=== PATIENT | female | born 1950 | race Caucasian/White ===

== ENCOUNTER 2019-01-15 20:47 | Observation (INO) | payer OTHER, BC ==
--- NOTE | 2019-01-15 21:03 | PDOC ---
History of Present Illness - General Chief Complaint: Syncope/Near Syncope Stated Complaint: SYNCOPE Time Seen by Provider: 01/15/19 21:02 History Source: Patient, Family Exam Limitations: No Limitations - History of Present Illness Initial Comments: 01/15/19 21:03 Source: Pt and at bedside HPI: 68yo woman with PMH migraines, Gaucher's Disease, secondary pulmonary hypertension, s/p R hip replacement, presenting with witnessed syncope. Pt was outside walking home with after a cocktail and felt nauseous and sat down on a low wall, when she attempted to stand up she because intensely nauseous and collapsed, incontinent of urine. Her reports that she slumped into his arms and he lowered her to the ground, denies any abnormal motions, regained consciousness after about 10 seconds. Bystanders called EMS who found the pt with a SBP in the 80s, gave 1L fluid bolus and found SBP in 120s on repeat. Denies chest pain, palpitations, SOB, CAST, dizziness, fevers, chills, urinary symptoms, or prior episodes. Reports that she feels amazing after her IVF, had felt well up until the syncope. Pt reports good PO intake and good water intake (4 glasses), reports increase in exercise (10K steps per day) as she is prepparing for a wedding in a couple months. 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, bruit over R chest / neck All: NKDA Meds: -VPRIV infusions every 2 weeks -Vitamin D -Allergy Meds PRN -MVI -Fioricet for migraines PRN PMH: as above PSH: as above Past History - Past Medical History Allergies/Adverse Reactions: Allergies Allergy/AdvReac Type Severity Reaction Status Date / Time No Known Allergies Allergy Verified 01/15/19 22:42 Review of Systems - Review of Systems Able to Perform ROS?: Yes Is the patient limited Amharic proficient: No Constitutional: No: Chills, Fever, Loss of Appetite, Night Sweats, Weakness HEENTM: No: Symptoms Reported Respiratory: No: Cough, Shortness of Breath, Wheezing, Productive cough Cardiac (ROS): Yes: See HPI, Syncope. No: Chest Pain, Irregular Heart Rate, Lightheadedness, Palpitations, Chest Tightness ABD/GI: Yes: See HPI, Nausea. No: Constipated, Diarrhea, Vomiting : No: Symptoms Reported, Burning, Dysuria, Discharge, Frequency, Incontinence , Pain, Urgency Musculoskeletal: No: Symptoms Reported, Back Pain, Neck Pain Integumentary: No: Symptoms Reported Neurological: No: Symptoms reported, Headache, Numbness, Paresthesia, Weakness All Other Systems: Reviewed and Negative *Physical Exam - Physical Exam Comments: 01/15/19 21:48 Vital signs reviewed, afebrile, HDS with mild hypertension GEN: WDWN woman laying in a stretcher, comfortable, cooperative, pleasant HEENT: NCAT, MMM, EOMI, normal morphologies CV: RRR, NL s1/s2, bruit extending from aortic region to the R carotid, no murmurs appreciated Pulm: Normal WOB, CTABL, no wheezes / rales / rhonchi Abd: soft, nontender, nondistended Skin: WWP, dry Ext: cap refill wnl, no clubbing / cyanosis / edema Pulses: 2+ radial and PT bilaterally Neuro: alert and oriented, CN grossly intact, MAEE, good strength throughout ED Treatment Course - LABORATORY CBC & Chemistry Diagram: 01/15/19 22:00 01/15/19 22:00 Medical Decision Making - Medical Decision Making 01/15/19 21:51 68yo woman with PMH migraines, Gaucher's Disease, secondary pulmonary hypertension, s/p R hip replacement, presenting with witnessed syncope with nausea prodrome in the setting of calorie restriction, increased exercise, alcohol consumption. Exam largely unremarkable, patient hemodynamically stable in the ED. Most likely vasovagal syncope, will assess for neurologic and cardiac causes. Of note, patient with close followup with multiple providers in the [facility]. -CBC, CMP, Cardiac Profile -NCHCT -EKG, CXR - IVF 01/15/19 23:19 -Pt taken to CT, CXR reads pending -Call placed to radiologist for information regarding well circumscribed R hilar mass seen on my read -Mild leukocytosis (10.4), Mild hypernatremia 147, Ca 6.9 (7.9 when corrected for albumin 2.8) -Troponin negative -EKG: NSR, rate 73, normal axis, prolonged QTc (478), deep T-wave inversions, possible left atrial enlargement, LV hypertrophy 01/16/19 00:03 -Plan for repeat troponin at 1:00 AM -Spoke with pt Neurologist Dr. Galeana, reported no recent EKG or CXR on hand, pt has not seen cardiology or pulmonology yet -Pt reports that she doesn't know when her most recent EKG or CXR would have been -Plan for CTA Chest, PE protocol to r/o PE and assess R lung mass Dispo: plan for admission, true syncope with LOC, deep T wave inversions on EKG 01/16/19 00:[address] Lee on the night team *DC/Admit/Observation/Transfer Diagnosis at time of Disposition: Syncope and collapse - Discharge Dispostion Disposition: HOME Condition at time of disposition: Improved Decision to Admit order: No - Referrals Referrals: ON STAFF,NOT [Primary Care Provider] - - Patient Instructions Printed Discharge Instructions: DI for Syncope in Adults (Fainting) - Post Discharge Activity
[2019-01-15] MEDS ORDERED: SODIUM CHLORIDE 1,000 ML IV STA (21:35)
[2019-01-15 21:53] VITALS: BMI 22.1
[2019-01-15 22:28] LABS: BASO % 0.4 % (0-2.0); EOS % 0.5 % (0-4.5); HEMATOCRIT 38.8 % (32.4-45.2); HEMOGLOBIN 13.3 GM/dL (10.7-15.3); LYMPH % 11.7 % (8-40); MCH 35.5 pg (25.7-33.7); MCHC 34.1 g/dl (32.0-36.0); MEAN CELL VOLUME 103.9 fl (80-96); MEAN PLT VOLUME 9.1 fl (7.5-11.1); MONO % 7.1 % (3.8-10.2); NEUT % 80.3 % (42.8-82.8); PLATELET COUNT 179 K/MM3 (134-434); RBC 3.74 M/mm3 (3.60-5.2); RDW 13.6 % (11.6-15.6); WHITE BLOOD COUNT 10.4 K/mm3 (4.0-10.0)
--- NOTE | 2019-01-15 22:40 | PDOC ---
Documentation entered by Tori Couch SCRIBE, acting as scribe for Denia Cornelius MD. Denia Cornelius MD: This documentation has been prepared by the Iza cruz Mackenzie, SCRIBE, under my direction and personally reviewed by me in its entirety. I confirm that the documentation accurately reflects all work , treatment, procedures, and medical decision making performed by me. 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 Patient states she had dinner and a few cocktails with her and on their walk home she suddenly felt nauseous and unsteady. She reports she sat down for a minute and when she stood up immediately syncopize and her called EMS. Patient notes she has been dieting recently The patient denies chest pain. Denies fever, chills,vomiting, diarrhea and constipation. Denies dysuria, frequency, urgency and hematuria. Allergies: NKA Past surgical history: as per resident note 01/15/19 21:42 - Physicial Exam PE: GENERAL: The patient is in no acute distress. ENT: Ears normal, nares patent, oropharynx clear without exudates. Moist mucous membranes. NECK: Normal range of motion, supple, no nuchal rigidity LUNGS: Breath sounds equal, clear to auscultation bilaterally. No wheezes, and no crackles. HEART: Regular rate and rhythm, normal S1 and S2 without murmur, rub or gallop. ABDOMEN: Soft, nontender, normoactive bowel sounds. No guarding, no rebound. No masses palpable. EXTREMITIES: Normal range of motion, no edema. NEUROLOGICAL: Cranial nerves II through XII grossly intact. Normal speech. No focal neurological deficits. SKIN: Warm, Dry, normal turgor, no rashes or lesions noted. 01/15/19 21:42 - Medical Decision Making 01/15/19 22:35 68 yo F presenting with a complaint of sycopal episode h/o migraines, Gaucher's Disease c/b pulmonary hypertension presenting with witnessed syncopal episode. Pt has been trying to walk more (today she did 11k steps). While walking outside with her after a cocktail, she felt an overwhelming sensaiton of nausea and in response sat down. She doesn't remember anything after this. 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, bruit over R chest / neck DD: Vasovagal syncope, dehydration, arrhythmia, ACS, complication of Gaucher's diesease Will do: Labs, EKG, CT head, contact PMD, re assess 01/15/19 23:51 Laboratory Tests 01/15/19 01/15/19 22:00 22:00 Sodium 147 H Potassium 3.2 L Chloride 119 H Carbon Dioxide 21 Creatinine 0.4 L Random Glucose 78 Calcium 6.9 L* Creatine Kinase 32 Troponin I < 0.02 Total Protein 5.3 L Albumin 2.8 L CORRECTED CALCIUM IS 7.9 01/15/19 23:52 Laboratory Tests 01/15/19 22:00 WBC 10.4 H Hgb 13.3 Hct 38.8 Plt Count 179 Call placed to PMD 01/15/19 23:53 EKG - NSR rate of 73bpm, axis nml, intervale nml, no st elevation or depression , deep t wave inversions v2-v5 CXR - right lung mass/lesion noted? With no prior for comparison, would 1) Do CT of chest 2) Admit for observation *DC/Admit/Observation/Transfer Diagnosis at time of Disposition: Syncope and collapse - Discharge Dispostion Condition at time of disposition: Fair Decision to Admit order: Yes - Referrals Referrals: ON STAFF,NOT [Primary Care Provider] - - Patient Instructions Printed Discharge Instructions: DI for Syncope in Adults (Fainting) - Post Discharge Activity
[2019-01-15 23:10] LABS: ALBUMIN 2.8 g/dl (3.4-5.0); BILIRUBIN,TOTAL 0.2 mg/dL (0.2-1); BLOOD UREA NITROGEN 12.3 mg/dL (7-18); CREATININE 0.4 mg/dL (0.55-1.3); POTASSIUM 3.2 mmol/L (3.5-5.1); TOT PROT 5.3 g/dl (6.4-8.2)
[2019-01-15 23:19] LABS: CALCIUM 6.9 mg/dL (8.5-10.1)
[2019-01-16] MEDS ORDERED: POTASSIUM CHLORIDE TABS 20 MEQ TABLET.ER (FP) PO ONE ×2 (00:17→00:34)
[2019-01-16 02:51] LABS: BLOOD UREA NITROGEN 12.2 mg/dL (7-18); CALCIUM 8.5 mg/dL (8.5-10.1); CREATININE 0.5 mg/dL (0.55-1.3); POTASSIUM 4.5 mmol/L (3.5-5.1)
[2019-01-16 03:55] LABS: ALBUMIN 3.6 g/dl (3.4-5.0); BILIRUBIN,TOTAL 0.4 mg/dL (0.2-1); MAGNESIUM 1.6 mg/dL (1.8-2.4); TOT PROT 6.6 g/dl (6.4-8.2)
--- NOTE | 2019-01-16 03:58 | PDOC ---
*Physical Exam - Vital Signs Last Vital Signs Temp Pulse Resp BP Pulse Ox 97.4 F L 72 16 142/59 L 96 01/15/19 21:10 01/15/19 21:10 01/15/19 21:10 01/15/19 21:10 01/15/19 21:10 ED Treatment Course - LABORATORY CBC & Chemistry Diagram: 01/15/19 22:00 01/16/19 02:15 - ADDITIONAL ORDERS Additional order review: Laboratory Results 01/16/19 01/16/19 01/15/19 00:40 00:40 22:00 Sodium Cancelled 147 H Potassium Cancelled 3.2 L Chloride Cancelled 119 H Carbon Dioxide Cancelled 21 Anion Gap Cancelled 7 L BUN Cancelled 12.3 Creatinine Cancelled 0.4 L Est GFR (CKD-EPI)AfAm Cancelled 125.79 Est GFR (CKD-EPI)NonAf Cancelled 108.54 Random Glucose Cancelled 78 Calcium Cancelled 6.9 L* Total Bilirubin 0.2 AST 25 ALT 35 Alkaline Phosphatase 67 Creatine Kinase Cancelled Troponin I Cancelled Total Protein 5.3 L Albumin 2.8 L 01/15/19 22:00 Sodium Potassium Chloride Carbon Dioxide Anion Gap BUN Creatinine Est GFR (CKD-EPI)AfAm Est GFR (CKD-EPI)NonAf Random Glucose Calcium Total Bilirubin AST ALT Alkaline Phosphatase Creatine Kinase 32 Troponin I < 0.02 Total Protein Albumin 01/15/19 22:00 RBC 3.74 MCV 103.9 H MCHC 34.1 RDW 13.6 MPV 9.1 Neutrophils % 80.3 Lymphocytes % 11.7 Monocytes % 7.1 Eosinophils % 0.5 Basophils % 0.4 - Medications Given in the ED: ED Medications Discontinued Medications Generic Name Dose Route Start Last Admin Trade Name Freq PRN Reason Stop Dose Admin Sodium Chloride 1,000 mls @ 1,000 mls/hr 01/15/19 21:35 01/15/19 22:15 Normal Saline - IV 01/15/19 22:34 1,000 mls/hr ASDIR STA Administration Potassium Chloride 40 meq 01/16/19 00:17 01/16/19 00:49 K-Dur - PO 01/16/19 00:18 40 meq ONCE ONE Administration Medical Decision Making - Medical Decision Making 01/16/19 03:57 Patient Name: RONEN NICHOLAS THIS IS A PRELIMINARY REPORT FROM [facility]AGING [facility]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 COMPARISON: None. TECHNIQUE: Following 94 mL Omnipaque 350 IV contrast administration thin axial images were obtained through the chest for pulmonary artery evaluation by pulmonary embolism protocol with 3-D post-processing included coronal and sagittal reformatted 3-D MIP images which were permanently stored in the patient medical record PACS. FINDINGS: No large central pulmonary embolism. Evaluation of the distal segmental branches are limited by artifact. Enlarged pulmonary arteries consistent with pulmonary artery hypertension. Right thyroid calcified nodule. No aortic aneurysm or dissection. Mild arteriosclerosis of the aorta and aortic branches. Right upper lobe spiculated nonspecific 1.1 x 1.1 cm mass axial image 33 and coronal image 54 may be benign or malignant. No pleural effusion. No pneumothorax. Calcified gallbladder wall incompletely included within the [id number] most likely associated with gallbladder dysmotility and chronic cholecystitis and other disease in the gallbladder wall including gallbladder wall malignancy cannot be excluded. Spleen is not identified. Chronic calcifications in the tail of the pancreas. Diverticulosis of the descending colon. Mild to moderate degenerative disc disease. T6 vertebral body hemangioma. Heterogeneous nonspecific breast parenchymal density in the left and right breast retroareolar soft tissues. IMPRESSION: No large central pulmonary embolism. Enlarged pulmonary arteries consistent with pulmonary artery hypertension. Right thyroid calcified nodule. Right upper lobe spiculated nonspecific 1.1 x 1.1 cm mass may be benign or malignant. If clinically indicated follow-up outpatient CT chest may be needed. Calcified gallbladder wall incompletely included within the [id number] most likely associated with gallbladder dysmotility and chronic cholecystitis and other disease in the gallbladder wall including gallbladder wall malignancy cannot be excluded. If clinically indicated follow- up outpatient gallbladder ultrasound evaluation may be needed. Spleen is not identified. Chronic calcifications in the tail of the pancreas. Diverticulosis of the descending colon. T6 vertebral body hemangioma. Heterogeneous nonspecific breast parenchymal density in the left and right breast retroareolar soft tissues. If clinically indicated follow-up outpatient bilateral breast mammograms may be needed. This CT exam was performed using one or more of the following dose reduction techniques: automated exposure control, adjustment of the mA and/or kV according to patient size, use of iterative reconstruction technique. *DC/Admit/Observation/Transfer Diagnosis at time of Disposition: Syncope and collapse - Discharge Dispostion Condition at time of disposition: Fair - Referrals - Patient Instructions - Post Discharge Activity
--- NOTE | 2019-01-16 04:06 | PDOC ---
*Physical Exam - Vital Signs Last Vital Signs Temp Pulse Resp BP Pulse Ox 97.4 F L 72 16 142/59 L 96 01/15/19 21:10 01/15/19 21:10 01/15/19 21:10 01/15/19 21:10 01/15/19 21:10 ED Treatment Course - LABORATORY CBC & Chemistry Diagram: 01/15/19 22:00 01/16/19 02:15 - ADDITIONAL ORDERS Additional order review: Laboratory Results 01/16/19 01/16/19 01/16/19 02:15 02:15 00:40 Sodium 146 H Potassium 4.5 Chloride 114 H Carbon Dioxide 24 Anion Gap 8 BUN 12.2 Creatinine 0.5 L Est GFR (CKD-EPI)AfAm 116.89 Est GFR (CKD-EPI)NonAf 100.85 Random Glucose 88 Calcium 8.5 Magnesium 1.6 L Total Bilirubin 0.4 AST 35 ALT 41 Alkaline Phosphatase 83 Creatine Kinase 41 Cancelled Troponin I < 0.02 Cancelled Total Protein 6.6 Albumin 3.6 01/16/19 01/15/19 01/15/19 00:40 22:00 22:00 Sodium Cancelled 147 H Potassium Cancelled 3.2 L Chloride Cancelled 119 H Carbon Dioxide Cancelled 21 Anion Gap Cancelled 7 L BUN Cancelled 12.3 Creatinine Cancelled 0.4 L Est GFR (CKD-EPI)AfAm Cancelled 125.79 Est GFR (CKD-EPI)NonAf Cancelled 108.54 Random Glucose Cancelled 78 Calcium Cancelled 6.9 L* Magnesium Total Bilirubin 0.2 AST 25 ALT 35 Alkaline Phosphatase 67 Creatine Kinase 32 Troponin I < 0.02 Total Protein 5.3 L Albumin 2.8 L 01/15/19 22:00 RBC 3.74 MCV 103.9 H MCHC 34.1 RDW 13.6 MPV 9.1 Neutrophils % 80.3 Lymphocytes % 11.7 Monocytes % 7.1 Eosinophils % 0.5 Basophils % 0.4 - Medications Given in the ED: ED Medications Discontinued Medications Generic Name Dose Route Start Last Admin Trade Name Freq PRN Reason Stop Dose Admin Sodium Chloride 1,000 mls @ 1,000 mls/hr 01/15/19 21:35 01/15/19 22:15 Normal Saline - IV 01/15/19 22:34 1,000 mls/hr ASDIR STA Administration Potassium Chloride 40 meq 01/16/19 00:17 01/16/19 00:49 K-Dur - PO 01/16/19 00:18 40 meq ONCE ONE Administration *DC/Admit/Observation/Transfer Diagnosis at time of Disposition: Syncope and collapse - Discharge Dispostion Condition at time of disposition: Fair - Referrals Referrals: ON STAFF,NOT [Primary Care Provider] - - Patient Instructions - Post Discharge Activity
[2019-01-16] MEDS ORDERED: MAGNESIUM OXIDE 400 MG TABLET (FP) PO ONE (04:42)
[2019-01-16 05:00] LABS: URINE APPEARANCE CLEAR; URINE BILIRUBIN NEGATIVE (NEGATIVE); URINE COLOR YELLOW; URINE GLUCOSE (UA) NEGATIVE (NEGATIVE); URINE KETONE NEGATIVE (NEGATIVE); URINE LEUK ESTERASE NEGATIVE (NEGATIVE); URINE NITRITE NEGATIVE (NEGATIVE); URINE PROTEIN NEGATIVE (NEGATIVE); URINE UROBILINOGEN 0.2 mg/dL (0.2-1.0)
--- NOTE | 2019-01-16 05:32 | PN ---
Teaching Attending Note Name of Resident: Katia Zayas ATTENDING PHYSICIAN STATEMENT I saw and evaluated the patient. I reviewed the resident's note and discussed the case with the resident. I agree with the resident's findings and plan as documented. Seen and examined; please refer to resident note for further historical information. Briefly, this is a 68 y/o female presenting with VS, labs, imaging reviewed NAD, AAO, resting comfortably in bed NC AT EOMI PERRLA Lungs CTAB, w/ sym exp RRR s1/2 NT ND +BS CN2-12 wnl, no fnd Normal mood, appropriate behavior EKG reviewed Preliminary imaging report shows ASSESSMENT AND PLAN: Patient presents to the hospital for
[2019-01-16] MEDS ORDERED: MAGNESIUM OXIDE 400 MG TABLET (FP) ONE (05:40)
--- NOTE | 2019-01-16 06:06 | HP ---
CHIEF COMPLAINT: Syncope PCP: none HISTORY OF PRESENT ILLNESS: 68 y.o. F PMH Gauchers disease, pulmonary HTN, kidney stones in the past, hyperparathyroidism presented after a syncopal episode. Pt does not remember much of the episode, syncopal episode explained by her Osmin. Pt was walking, took 3-4 steps and then "just passed out". Her states she fell , did not hit her head because he caught her, and lost consciousness for about 5 seconds. Pt became incontinent during this episode. Pt had post-ictal drowsiness. Pt did experience nausea upon wakening but no emesis. She has never had LOC/ syncopal episode in the past. Denies CP/ SOB/ emesis/ diarrhea/ parasthesias/ myalgias. ER course was notable for: (1)Head CT neg (2)Chest CTA: Right upper lobe spiculated nonspecific 1.1 x 1.1 cm mass may be benign or malignant. Calcified GB, gallbladder wall malignancy cannot be excluded Recent Travel: Denies PAST MEDICAL HISTORY: Gauchers disease, pulmonary HTN, migraines, kidney stones PAST SURGICAL HISTORY: Parathyroidectomy x1 gland abotu 15 yrs ago, R hip replacement, splenectomy Social History: Smoking: Denies Alcohol: Social, 1-2 drinks per week Drugs: Denies Family History: DM father, lymphoma mother Allergies No Known Allergies Allergy (Verified 01/15/19 22:42) HOME MEDICATIONS: Home Medications Medication Instructions Recorded NK [No Known Home Medication] 01/16/19 REVIEW OF SYSTEMS CONSTITUTIONAL: Absent: fever, chills, diaphoresis, generalized weakness, malaise, loss of appetite, weight change HEENT: Absent: rhinorrhea, nasal congestion, throat pain, throat swelling, difficulty swallowing, mouth swelling, ear pain, eye pain, visual changes CARDIOVASCULAR: Absent: chest pain, syncope, palpitations, irregular heart rate, lightheadedness , peripheral edema RESPIRATORY: Absent: cough, shortness of breath, dyspnea with exertion, orthopnea, wheezing, stridor, hemoptysis GASTROINTESTINAL: Absent: abdominal pain, abdominal distension, nausea, vomiting, diarrhea, constipation, melena, hematochezia GENITOURINARY: Absent: dysuria, frequency, urgency, hesitancy, hematuria, flank pain, genital pain MUSCULOSKELETAL: Absent: myalgia, arthralgia, joint swelling, back pain, neck pain SKIN: Absent: rash, itching, pallor HEMATOLOGIC/IMMUNOLOGIC: Absent: easy bleeding, easy bruising, lymphadenopathy, frequent infections ENDOCRINE: Absent: unexplained weight gain, unexplained weight loss, heat intolerance, cold intolerance NEUROLOGIC: Absent: headache, focal weakness or paresthesias, dizziness, unsteady gait, seizure, mental status changes, bladder or bowel incontinence PSYCHIATRIC: Absent: anxiety, depression, suicidal or homicidal ideation, hallucinations. PHYSICAL EXAMINATION Vital Signs - 24 hr 01/15/19 21:10 Temperature 97.4 F L Pulse Rate 72 Respiratory 16 Rate Blood Pressure 142/59 L O2 Sat by Pulse 96 Oximetry (%) GENERAL: Awake, alert, and fully oriented, in no acute distress. HEAD: Normal with no signs of trauma. EYES: Pupils equal, round and reactive to light, extraocular movements intact, sclera anicteric, conjunctiva clear. No lid lag. EARS, NOSE, THROAT: Ears normal, nares patent, oropharynx clear without exudates. Moist mucous membranes. NECK: Normal range of motion, supple without lymphadenopathy, JVD, or masses. LUNGS: Breath sounds equal, clear to auscultation bilaterally. No wheezes, and no crackles. No accessory muscle use. HEART: Regular rate and rhythm, normal S1 and S2 without murmur, rub or gallop. ABDOMEN: Soft, nontender, not distended, normoactive bowel sounds, no guarding, no rebound, no masses. MUSCULOSKELETAL: Normal range of motion UPPER EXTREMITIES: 2+ pulses, warm, well-perfused. No cyanosis. No clubbing. No peripheral edema. LOWER EXTREMITIES: 2+ pulses, warm, well-perfused. No calf tenderness. No peripheral edema. NEUROLOGICAL: Cranial nerves II-XII intact. Normal speech. Normal gait. Orthostatics negative. Gleason hallpike negative. SKIN: Warm, dry, normal turgor, no rashes or lesions noted Laboratory Results - last 24 hr Laboratory Last Values WBC 10.4 K/mm3 (4.0-10.0) H 01/15/19 22:00 RBC 3.74 M/mm3 (3.60-5.2) 01/15/19 22:00 Hgb 13.3 GM/dL (10.7-15.3) 01/15/19 22:00 Hct 38.8 % (32.4-45.2) 01/15/19 22:00 MCV 103.9 fl (80-96) H 01/15/19 22:00 MCH 35.5 pg (25.7-33.7) H 01/15/19 22:00 MCHC 34.1 g/dl (32.0-36.0) 01/15/19 22:00 RDW 13.6 % (11.6-15.6) 01/15/19 22:00 Plt Count 179 K/MM3 (134-434) 01/15/19 22:00 MPV 9.1 fl (7.5-11.1) 01/15/19 22:00 Absolute Neuts (auto) 8.4 K/mm3 (1.5-8.0) H 01/15/19 22:00 Neutrophils % 80.3 % (42.8-82.8) 01/15/19 22:00 Lymphocytes % 11.7 % (8-40) 01/15/19 22:00 Monocytes % 7.1 % (3.8-10.2) 01/15/19 22:00 Eosinophils % 0.5 % (0-4.5) 01/15/19 22:00 Basophils % 0.4 % (0-2.0) 01/15/19 22:00 Nucleated RBC % 0 % (0-0) 01/15/19 22:00 Sodium 146 mmol/L (136-145) H 01/16/19 02:15 Potassium 4.5 mmol/L (3.5-5.1) 01/16/19 02:15 Chloride 114 mmol/L (98-107) H 01/16/19 02:15 Carbon Dioxide 24 mmol/L (21-32) 01/16/19 02:15 Anion Gap 8 MMOL/L (8-16) 01/16/19 02:15 BUN 12.2 mg/dL (7-18) 01/16/19 02:15 Creatinine 0.5 mg/dL (0.55-1.3) L 01/16/19 02:15 Est GFR (CKD-EPI)AfAm 116.89 01/16/19 02:15 Est GFR (CKD-EPI)NonAf 100.85 01/16/19 02:15 Random Glucose 88 mg/dL (74-106) 01/16/19 02:15 Calcium 8.5 mg/dL (8.5-10.1) 01/16/19 02:15 Magnesium 1.6 mg/dL (1.8-2.4) L 01/16/19 02:15 Total Bilirubin 0.4 mg/dL (0.2-1) 01/16/19 02:15 AST 35 U/L (15-37) 01/16/19 02:15 ALT 41 U/L (13-61) 01/16/19 02:15 Alkaline Phosphatase 83 U/L (45-117) 01/16/19 02:15 Creatine Kinase 41 U/L (26-192) 01/16/19 02:15 Troponin I < 0.02 ng/ml (0.00-0.05) 01/16/19 02:15 Total Protein 6.6 g/dl (6.4-8.2) 01/16/19 02:15 Albumin 3.6 g/dl (3.4-5.0) 01/16/19 02:15 Urine Color Yellow 01/16/19 04:43 Urine Appearance Clear 01/16/19 04:43 Urine pH 7.0 (5.0-8.0) 01/16/19 04:43 Ur Specific Cobb 1.028 (1.010-1.035) 01/16/19 04:43 Urine Protein Negative (NEGATIVE) 01/16/19 04:43 Urine Glucose (UA) Negative (NEGATIVE) 01/16/19 04:43 Urine Ketones Negative (NEGATIVE) 01/16/19 04:43 Urine Blood Negative (NEGATIVE) 01/16/19 04:43 Urine Nitrite Negative (NEGATIVE) 01/16/19 04:43 Urine Bilirubin Negative (NEGATIVE) 01/16/19 04:43 Urine Urobilinogen 0.2 mg/dL (0.2-1.0) 01/16/19 04:43 Ur Leukocyte Esterase Negative (NEGATIVE) 01/16/19 04:43 ASSESSMENT/PLAN: 68 F PMH Gauchers disease, pulmonary HTN, kidney stones presenting after syncopal episode. #Syncope -F/u EKG, echo -Admit to tele -MRI brain w/o contrast -CT abd/ pel -Neuro checks -Seizure precautions #HTN -C/w home meds #Migraine Headaches -Fioricet (home med) #FEN -S/p 1 bolus IVF -Trend lytes -Chol/ fat Na restr diet #DVT PPX -LVX 40 SQ Visit type - Emergency Visit Emergency Visit: Yes ED Registration Date: 01/16/19 Care time: The patient presented to the Emergency Department on the above date and was hospitalized for further evaluation of their emergent condition. - New Patient This patient is new to me today: Yes Date on this admission: 01/16/19 - Critical Care Critical Care patient: No ATTENDING PHYSICIAN STATEMENT I saw and evaluated the patient. I reviewed the resident's note and discussed the case with the resident. I agree with the resident's findings and plan as documented. SUBJECTIVE: OBJECTIVE: ASSESSMENT AND PLAN:
[2019-01-16 09:27] LABS: BASO % 0.4 % (0-2.0); EOS % 0.4 % (0-4.5); HEMATOCRIT 40.4 % (32.4-45.2); LYMPH % 26.4 % (8-40); MCH 35.7 pg (25.7-33.7); MCHC 34.7 g/dl (32.0-36.0); MEAN CELL VOLUME 102.9 fl (80-96); MEAN PLT VOLUME 9.4 fl (7.5-11.1); MONO % 7.6 % (3.8-10.2); NEUT % 65.2 % (42.8-82.8); PLATELET COUNT 182 K/MM3 (134-434); RBC 3.93 M/mm3 (3.60-5.2); RDW 13.4 % (11.6-15.6); WHITE BLOOD COUNT 7.6 K/mm3 (4.0-10.0)
[2019-01-16 09:43] LABS: ALBUMIN 3.9 g/dl (3.4-5.0); BILIRUBIN,TOTAL 0.6 mg/dL (0.2-1); BLOOD UREA NITROGEN 9.2 mg/dL (7-18); CALCIUM 9.2 mg/dL (8.5-10.1); CREATININE 0.5 mg/dL (0.55-1.3); MAGNESIUM 2.3 mg/dL (1.8-2.4); PHOSPHOROUS 2.6 mg/dL (2.5-4.9); POTASSIUM 4.4 mmol/L (3.5-5.1); TOT PROT 7.3 g/dl (6.4-8.2)
[2019-01-16] MEDS ORDERED: ENOXAPARIN NA (PORCINE) 40 MG/0.4 ML DISP.SYRIN SQ SCH (10:00)
[2019-01-16 10:45] VITALS: TEMP 97.9
[2019-01-16] MEDS ORDERED: ENOXAPARIN NA (PORCINE) 40 MG/0.4 ML DISP.SYRIN SQ ONE (11:08)
--- NOTE | 2019-01-16 11:46 | DS ---
Physical Exam: SUBJECTIVE: Patient seen and examined. pt is asymptomatic. states she felt immediate improvement when EMS started IVF on her. states she has not been drinking lately and was out in the sun yesterday. is very well versed in her medical conditions. has a known porclein gallbladder which she has been following with routine screening. 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 has known pulmonary HTN. has not had her routine screening testing. mother had breast cancer at "very elderly age" denies CP, SOB, fever, chills, N/V/C/D OBJECTIVE: Vital Signs Period Temp Pulse Resp BP Sys/Flaherty Pulse Ox Last 24 Hr 97.4 F-97.9 F 72-74 16-16 140-142/59-77 96-96 PHYSICAL EXAM GENERAL: The patient is awake, alert, and fully oriented, in no acute distress. HEAD: Normal with no signs of trauma. EYES: PERRL, extraocular movements intact, sclera anicteric, conjunctiva clear. ENT: Ears normal, nares patent, oropharynx clear without exudates, moist mucous membranes. NECK: Trachea midline, full range of motion, supple. LUNGS: Breath sounds equal, clear to auscultation bilaterally, no wheezes, no crackles, no accessory muscle use. HEART: Regular rate and rhythm, S1, S2 +holosystolic murmur radiating from the R carotid rub or gallop. ABDOMEN: Soft, nontender, nondistended, normoactive bowel sounds, no guarding, no rebound, no hepatosplenomegaly, no masses. EXTREMITIES: 2+ pulses, warm, well-perfused, no edema. NEUROLOGICAL: Cranial nerves II through XII grossly intact. Normal speech, neg dysmetria, neg heel to rutherford. strength and sensation equal in all 4 extremities. gait not observed. PSYCH: Normal mood, normal affect. SKIN: Warm, dry, normal turgor, no rashes or lesions noted. LABS Laboratory Results - last 24 hr 01/15/19 01/15/19 01/15/19 22:00 22:00 22:00 WBC 10.4 H RBC 3.74 Hgb 13.3 Hct 38.8 MCV 103.9 H MCH 35.5 H MCHC 34.1 RDW 13.6 Plt Count 179 MPV 9.1 Absolute Neuts (auto) 8.4 H Neutrophils % 80.3 Lymphocytes % 11.7 Monocytes % 7.1 Eosinophils % 0.5 Basophils % 0.4 Nucleated RBC % 0 Sodium 147 H Potassium 3.2 L Chloride 119 H Carbon Dioxide 21 Anion Gap 7 L BUN 12.3 Creatinine 0.4 L Est GFR (CKD-EPI)AfAm 125.79 Est GFR (CKD-EPI)NonAf 108.54 Random Glucose 78 Calcium 6.9 L* Phosphorus Magnesium Total Bilirubin 0.2 AST 25 ALT 35 Alkaline Phosphatase 67 Creatine Kinase 32 Troponin I < 0.02 Total Protein 5.3 L Albumin 2.8 L TSH Urine Color Urine Appearance Urine pH Ur Specific [place] Urine Protein Urine Glucose (UA) Urine Ketones Urine Blood Urine Nitrite Urine Bilirubin Urine Urobilinogen Ur Leukocyte Esterase 01/16/19 01/16/19 01/16/19 00:40 00:40 02:15 WBC RBC Hgb Hct MCV MCH MCHC RDW Plt Count MPV Absolute Neuts (auto) Neutrophils % Lymphocytes % Monocytes % Eosinophils % Basophils % Nucleated RBC % Sodium Cancelled 146 H Potassium Cancelled 4.5 Chloride Cancelled 114 H Carbon Dioxide Cancelled 24 Anion Gap Cancelled 8 BUN Cancelled 12.2 Creatinine Cancelled 0.5 L Est GFR (CKD-EPI)AfAm Cancelled 116.89 Est GFR (CKD-EPI)NonAf Cancelled 100.85 Random Glucose Cancelled 88 Calcium Cancelled 8.5 Phosphorus Magnesium 1.6 L Total Bilirubin 0.4 AST 35 ALT 41 Alkaline Phosphatase 83 Creatine Kinase Cancelled 41 Troponin I Cancelled Total Protein 6.6 Albumin 3.6 TSH Urine Color Urine Appearance Urine pH Ur Specific [place] Urine Protein Urine Glucose (UA) Urine Ketones Urine Blood Urine Nitrite Urine Bilirubin Urine Urobilinogen Ur Leukocyte Esterase 01/16/19 01/16/19 01/16/19 02:15 04:43 08:38 WBC 7.6 RBC 3.93 Hgb 14.0 Hct 40.4 MCV 102.9 H MCH 35.7 H MCHC 34.7 RDW 13.4 Plt Count 182 MPV 9.4 Absolute Neuts (auto) 4.9 Neutrophils % 65.2 Lymphocytes % 26.4 D Monocytes % 7.6 Eosinophils % 0.4 Basophils % 0.4 Nucleated RBC % 0 Sodium Potassium Chloride Carbon Dioxide Anion Gap BUN Creatinine Est GFR (CKD-EPI)AfAm Est GFR (CKD-EPI)NonAf Random Glucose Calcium Phosphorus Magnesium Total Bilirubin AST ALT Alkaline Phosphatase Creatine Kinase Troponin I < 0.02 Total Protein Albumin TSH Urine Color Yellow Urine Appearance Clear Urine pH 7.0 Ur Specific [place] 1.028 Urine Protein Negative Urine Glucose (UA) Negative Urine Ketones Negative Urine Blood Negative Urine Nitrite Negative Urine Bilirubin Negative Urine Urobilinogen 0.2 Ur Leukocyte Esterase Negative 01/16/19 08:38 WBC RBC Hgb Hct MCV MCH MCHC RDW Plt Count MPV Absolute Neuts (auto) Neutrophils % Lymphocytes % Monocytes % Eosinophils % Basophils % Nucleated RBC % Sodium 145 Potassium 4.4 Chloride 116 H Carbon Dioxide 22 Anion Gap 7 L BUN 9.2 Creatinine 0.5 L Est GFR (CKD-EPI)AfAm 116.89 Est GFR (CKD-EPI)NonAf 100.85 Random Glucose 91 Calcium 9.2 Phosphorus 2.6 Magnesium 2.3 Total Bilirubin 0.6 AST 31 ALT 44 Alkaline Phosphatase 92 Creatine Kinase Troponin I Total Protein 7.3 Albumin 3.9 TSH 2.96 Urine Color Urine Appearance Urine pH Ur Specific [place] Urine Protein Urine Glucose (UA) Urine Ketones Urine Blood Urine Nitrite Urine Bilirubin Urine Urobilinogen Ur Leukocyte Esterase HOSPITAL COURSE: Date of Admission:01/16/19 Date of Discharge: 01/16/19 Admitting diagnosis: syncope due to dehydration, RUL nodule Pre hospital course 68 y.o. F PMH Gauchers disease, pulmonary HTN, kidney stones in the past, hyperparathyroidism presented after a syncopal episode. Pt does not remember much of the episode, syncopal episode explained by her Osmin. Pt was walking, took 3-4 steps and then "just passed out". Her states she fell , did not hit her head because he caught her, and lost consciousness for about 5 seconds. Pt became incontinent during this episode. Pt had post-ictal drowsiness. Pt did experience nausea upon wakening but no emesis. She has never had LOC/ syncopal episode in the past. Denies CP/ SOB/ emesis/ diarrhea/ parasthesias/ myalgias. Subsequent hospital course tele observation. pt is well versed in her conditions and been following closely with her PMD in [facility]. has a known porclein gallbladder which she has routine monitoring, carotid fistula. was informed of her risks of having RUL nodule and the possibility of this spreading to her brain even though her CT head was negative. declined further testing as she would prefer all further testing to be completed at [facility] where her PMD is. no focal neurolgical deficits seen and therefore low risk of this although could have a very small mets. explained risks and benefits of staying and is willing to follow up closely with her doctor next week. d/c home. present at bedside. verbalized understanding of risks as well. Minutes to complete discharge: 40 Discharge Summary Reason For Visit: SYNCOPE AND COLLAPSE, LUNG MASS Current Active Problems Hypokalemia (Acute) Hypomagnesemia (Acute) Lung nodule (Acute) Syncope and collapse (Acute) Condition: Fair - Instructions Diet, Activity, Other Instructions: You came to the hospital because you passed out. This liekly occurred because you were dehydrated. In the hospital it was found that you have a right lobe nodule that requires further testing. THere is concern that if this is cancerous that it could have gone to your brain and could have been a reason you passed out. A brain MRI was offered but you declined this test. It is very important that you follow up with your primary care doctor for further testing. You should follow up and have a biopsy of your lung. Ensure you are drinking plenty of water and staying hydrated REturn to the hospital if you pass out again, develop numbness or tingling on one side of your body or develop difficulty breathing Referrals: ON STAFF,NOT [Primary Care Provider] - - Home Medications Comprehensive Discharge Medication List: Ambulatory Orders NK [No Known Home Medication] 01/16/19 This patient is new to me today: Yes Date on this admission: 01/16/19 Emergency Visit: Yes ED Registration Date: 01/16/19 Care time: The patient presented to the Emergency Department on the above date and was hospitalized for further evaluation of their emergent condition. Critical Care patient: No - Discharge Referral Referred to [facility] No
[2019-01-16 12:08] VITALS: BP 158/87; PULSE 77
--- NOTE | 2019-01-16 12:29 | CON.PULM ---
Consult Consult Specialty:: PULMONARY Referred by:: Dr Cotto Reason for Consultation:: lung nodule - History of Present Illness Chief Complaint: syncope History of Present Illness: 68yo female with h/o Gauchers disease, pulmonary HTN, hyperparathyroidism who was admitted s/p syncopal episode. On admission work up, CTA chest showing RUL 1.1 nodule spiculated. She denies any shortness of breath or chest pain. No cough or wheezing. 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 No fevers, chills or night sweats. No unintentional weight loss. She is a never smoker. Mother had low grade lymphoma and breast ca. She has not kept up with her cancer screening. - History Source History Provided By: Patient, Medical Record Limitations to Obtaining History: No Limitations - Alcohol/Substance Use Hx Alcohol Use: Yes (socially) - Smoking History Smoking history: Never smoked Home Medications - Allergies Allergies/Adverse Reactions: Allergies Allergy/AdvReac Type Severity Reaction Status Date / Time No Known Allergies Allergy Verified 01/15/19 22:42 - Home Medications Home Medications: Ambulatory Orders NK [No Known Home Medication] 01/16/19 Review of Systems - Review of Systems Constitutional: denies: Chills, Fever Eyes: denies: Recent Change in Vision HENT: denies: Nasal Congestion, Throat Pain Neck: denies: Stiffness, Tenderness Cardiovascular: denies: Chest Pain, Shortness of Breath Respiratory: denies: Cough, Hemoptysis, Wheezing Gastrointestinal: denies: Abdominal Pain, Nausea, Vomiting Genitourinary: denies: Dysuria, Hematuria Neurological: reports: Syncope. denies: Dizziness, Headache Endocrine: denies: Unexplained Weight Loss Physical Exam Vital Sings: Vital Signs Temperature 97.9 F 01/16/19 10:43 Pulse Rate 77 01/16/19 12:08 Respiratory Rate 16 01/16/19 12:08 Blood Pressure 158/87 01/16/19 12:08 O2 Sat by Pulse Oximetry (%) 96 01/16/19 12:08 Constitutional: Yes: Calm Eyes: Yes: Conjunctiva Clear, EOM Intact HENT: Yes: Atraumatic, Normocephalic Neck: Yes: Supple, Trachea Midline Cardiovascular: Yes: Regular Rate and Rhythm Respiratory: Yes: Diminished (decreased breath sounds at the bases) ...Clubbing: No Gastrointestinal: Yes: Normal Bowel Sounds, Soft. No: Tenderness Edema: No Neurological: Yes: Alert, Oriented Labs: CBC, BMP 01/16/19 08:38 01/16/19 08:38 Imaging - Results Chest X-ray: Report Reviewed, Image Reviewed Cat Scan: Report Reviewed, Image Reviewed (RUL 1.1cm nodule) Problem List - Problems (1) Syncope and collapse Code(s): R55 - SYNCOPE AND COLLAPSE (2) Gaucher disease Code(s): E75.22 - GAUCHER DISEASE (3) Lung nodule Code(s): R91.1 - SOLITARY PULMONARY NODULE (4) Pulmonary HTN Code(s): I27.20 - PULMONARY HYPERTENSION, UNSPECIFIED Assessment/Plan Syncope Incidental RUL Nodule Pulmonary HTN Gauchers Disease - will need outpt PET scan and CT guided biopsy if PET avid - outpt PFTs - pt to picker/puller report and CD with images as she is going to see a sales attendant at [facility] Thank you for this consult Theo Arrington MD
--- NOTE | 2019-01-16 15:18 | EKG ---
Test Reason : Blood Pressure : / mmHG Vent. Rate : 073 BPM Atrial Rate : 073 BPM P-R Int : 162 ms QRS Dur : 098 ms QT Int : 434 ms P-R-T Axes : 053 -11 009 degrees QTc Int : 478 ms NORMAL SINUS RHYTHM POSSIBLE LEFT ATRIAL ENLARGEMENT LEFT VENTRICULAR HYPERTROPHY PROLONGED QT ABNORMAL ECG NO PREVIOUS ECGS AVAILABLE Confirmed by MD Montiel Daniel ([id number]) on 01/16/2019 3:18:02 PM Referred By: Confirmed By:Derek Montiel MD
== END 2019-01-16 12:09 | disposition home or self-care (01) ==
LOC: JER 20:47 → JERBED 01-16 01:07 → INTOOBSV 01-16 01:07 → UNDOADMOB 01-16 01:07 → JERBED 01-16 04:36
PROVIDERS: ADMIT Internal Medicine; ATTEND Internal Medicine
PROC: 3E0337Z Introduction of Electrolytic and Water Balance Substance into Peripheral Vein, Percutaneous Approach (ICD-10-PCS; principal; 2019-01-16)
DX: R55 Syncope and collapse (principal); I27.20 Pulmonary hypertension, unspecified; E75.22 Gaucher disease; E87.6 Hypokalemia; E83.42 Hypomagnesemia; R91.1 Solitary pulmonary nodule; Z96.641 Presence of right artificial hip joint
CPT/HCPCS: 36415; 70450-TC; 71046-TC-FY; 71275-TC; 80048; 80053; 81003; 82550; 83735; 84100; 84443; 84484; 85025; 93005; 93010; 93880-TC; 96360; 99283-25; G0378; J7030

== ENCOUNTER 2020-01-14 09:58 | Emergency (ER) | payer OTHER, BC ==
[2020-01-14 10:01] VITALS: BMI 23.8
[2020-01-14] MEDS ORDERED: morphine CARPU-JECT 4 MG/1 ML DISP.SYRIN IVPUSH ONE (10:16)
[2020-01-14] MEDS ORDERED: DIPHTH,PERTUSS(ACELL),TET 0.5 ML DISP.SYRIN IM ONE ×2 (10:17→11:45)
[2020-01-14] MEDS ORDERED: morphine SULFATE 4 MG/ML VIAL ONE (11:04)
[2020-01-14] MEDS ORDERED: PROPOFOL 20 ML ONE (11:04)
[2020-01-14 11:12] LABS: BASO % 0.6 % (0-2.0); EOS % 1.1 % (0-4.5); HEMATOCRIT 42.2 % (32.4-45.2); HEMOGLOBIN 14.2 GM/dL (10.7-15.3); LYMPH % 24.1 % (8-40); MCH 35.6 pg (25.7-33.7); MCHC 33.8 g/dl (32.0-36.0); MEAN CELL VOLUME 105.6 fl (80-96); MEAN PLT VOLUME 8.8 fl (7.5-11.1); NEUT % 65.2 % (42.8-82.8); PLATELET COUNT 213 K/MM3 (134-434); RBC 3.99 M/mm3 (3.60-5.2); RDW 13.2 % (11.6-15.6); WHITE BLOOD COUNT 8.6 K/mm3 (4.0-10.0)
[2020-01-14 11:20] LABS: INR 1.04 (0.83-1.09); PROTHROMBIN TIME (PATIENT) 12.3 SEC (9.7-13.0)
--- NOTE | 2020-01-14 11:28 | PDOC ---
Attending Attestation - Resident Resident Name: Pedro Hernandez - HPI HPI: 01/14/20 11:23 Pt presents to the ED complaining of R wrist swelling and deformity after FOOSH. History of pulmonary HTN and Gouchet's disease. Denies other injuries. - Physicial Exam PE: 01/14/20 11:31 Agree with PA exam. Gross deformity of the R wrist with lateral displacement. Intact cap refill, sensation, radial and ulnar pulses. - Medical Decision Making 01/14/20 11:33 Pt presents to the ED complaining of painful, deformed R wrist. Xray shows fracture and complete displacement of the radius and ulna. Neurovascularly intact in the ED. Reduction attempted. Will consult ortho. 01/14/20 11:39 01/14/20 11:44 Discharge - Discharge Information Problems reviewed: Yes Clinical Impression/Diagnosis: Wrist fracture, right Qualifiers: Encounter type: initial encounter Fracture type: closed Qualified Code(s): S62.101A - Fracture of unspecified carpal bone, right wrist, initial encounter for closed fracture Condition: Stable Disposition: HOME - Additional Discharge Information Prescriptions: Ibuprofen [Ibu] 600 mg PO TID #30 tablet Oxycodone HCl/Acetaminophen [Percocet 5-325 mg Tablet] 1 tab PO Q6H #20 tablet MDD 4 Ondansetron HCl [Zofran] 4 mg PO BID #15 tablet - Follow up/Referral Referrals: Lamont Lehman MD [Staff Physician] - Elmer Weinstein MD [Staff Physician] - Antonio Loaiza MD [Staff Physician] - - Patient Discharge Instructions Patient Printed Discharge Instructions: How to Take Care of Your Cast, DI for Wrist Fracture - Post Discharge Activity
--- NOTE | 2020-01-14 11:42 | PDOC ---
History of Present Illness - General Chief Complaint: Bone Injury Stated Complaint: FALL Time Seen by Provider: 01/14/20 10:12 History Source: Patient Exam Limitations: No Limitations - History of Present Illness Initial Comments: 01/14/20 11:36 69 year old female with pmhx of Gaucher's disease and pulmonary HTN presenting after FOOSH to [facility]. Pt states she was on a walk and tripped and fell, falling onto her out stretched hand felt immediate pain and saw a wrist deformity. Pt came immediately to the ED. Did not hit head or have LOC, states fall was mechanical and no pre syncope. Pt denies numbness and tingling in the effected extremity. Pt otherwise denies: fevers, chills, syncope, lightheadedness, dizziness, headaches, neck pain, chest pain, shortness of breath, palpitations, back pain, abdominal pain, nausea, vomiting, diarrhea, constipation. Past History - Medical History Allergies/Adverse Reactions: Allergies Allergy/AdvReac Type Severity Reaction Status Date / Time No Known Allergies Allergy Verified 01/15/19 22:42 Home Medications: Ambulatory Orders Ibuprofen [Ibu] 600 mg PO TID #30 tablet 01/14/20 Ondansetron HCl [Zofran] 4 mg PO BID #15 tablet 01/14/20 Oxycodone HCl/Acetaminophen [Percocet 5-325 mg Tablet] 1 tab PO Q6H #20 tablet MDD 4 01/14/20 COPD: No - Reproductive History Is Patient Now?: No - Psycho-Social/Smoking History Smoking History: Never smoked Have you smoked in the past 12 months: No Information on smoking cessation initiated: No - Substance Abuse Hx (Audit-C & DAST Scrn) How often the patient has a drink containing alcohol: Never Score: In Men: 4 or > Positive; In Women: 3 or > Positive: 0 Screen Result (Pos requires Nsg. Audit-10AR): Negative In the last yr the pt used illegal drug/Rx for NonMed reason: No Score: Yes response is considered Positive: 0 Screen Result (Positive result requires Nsg. DAST-10): Negative *Physical Exam - Vital Signs Last Vital Signs Temp Pulse Resp BP Pulse Ox 98.2 F 80 20 131/71 99 01/14/20 09:58 01/14/20 09:58 01/14/20 09:58 01/14/20 09:58 01/14/20 09:58 - Physical Exam 01/14/20 11:38 Gen: AAOx 3, no acute distress, comfortable, no signs of respiratory distress HENT: atraumatic, normocephalic with no laceration or contusion. Nasal mucosa without erythema. Oropharynx without erythema or exudates. Mucous membranes moist. EYES: PERRL, EOM intact, conjunctiva pink NECK: supple; trachea midline; no JVD, no lymphadenopathy, or thyromegaly CV: RRR no murmurs, gallops, or rubs. CHEST: CTA b/l no wheezing, rales or rhonchi ABD: +BS/ND. no TTP; soft, no rebound, no guarding EXTREMITY: no cyanosis or erythema. 2+ dorsalis pedis, posterior tibial, and radial pulse. No pedal edema; no calf swelling or tenderness RUE: obvious deformity to right wrist with ulnar and dorsal angulation ttp over wrist joint, multiple superficial abrasions to hand, SILT, no ROM 2/2 pain, <2 sec cap refill 2+ ulnar and radial pulses. Hand FROM 5/5 strength. Rest of extremity FROM SKIN: no rash, warm and dry, no diaphoresis HEME: no purpura or ecchymosis NEURO: normal speech, CN II-XII intact, sensation intact, normal gait, no cerebellar deficits MS: 5/5 strength in all extremities, FROM intact in all extremities except R wrist see above Procedures - Splinting Splint Location: Right: Wrist Pre-Proc Neuro Vasc Exam: normal Hand-Made Type: orthoglass Splint Type: Yes: Sugar Tong Post-Proc Neuro Vasc Exam: normal Hood Bandage: 3", 6" Sling: Yes Complications: No Post splint xray: Yes Good repositioning: Yes - Joint Reduction Right Joint Reduction Site: right: Colles' Fracture Pre-Procedure NV Exam: normal Conscious Sedation: No Finger Block: Hematoma Anesthetic: 1% Lidocaine Amount (mL): 5 Procedure: Colles Reduction Complications: No Post Joint Reduction Film: joint reduced Splint: Yes Immobilized: Yes ED Treatment Course - LABORATORY CBC & Chemistry Diagram: 01/14/20 10:50 01/14/20 10:50 - ADDITIONAL ORDERS Additional order review: Laboratory Results 01/14/20 10:50 PT with INR 12.30 INR 1.04 01/14/20 10:50 RBC 3.99 MCV 105.6 H MCHC 33.8 RDW 13.2 MPV 8.8 Neutrophils % 65.2 Lymphocytes % 24.1 Monocytes % 9.0 Eosinophils % 1.1 D Basophils % 0.6 - RADIOLOGY Radiology Studies Ordered: Category Date Time Status WRIST W/HAND-RIGHT* [RAD] Stat Radiology 01/14/20 10:15 Taken WRIST W/HAND-RIGHT* [RAD] Stat Radiology 01/14/20 11:28 Ordered - Medications Given in the ED: ED Medications Discontinued Medications Generic Name Dose Route Start Last Admin Trade Name Andrez PRN Reason Stop Dose Admin Morphine Sulfate 4 mg 01/14/20 10:16 01/14/20 11:08 Morphine Injection - IVPUSH 01/14/20 10:17 4 mg ONCE ONE Administration Medical Decision Making - Medical Decision Making 01/14/20 11:42 69-year-old female status post FOOSH with right comminuted radial and ulnar fracture on x-ray Vital signs stable Will perform hematoma block and reduce Will give morphine 4 mg for pain relief We will obtain labs for preop testing as convenient Labs WNL Suboptimal reduction achieved ortho called and PA evaluated at bedside recommends surgery and no further acute intevention in ED as fracture is unstable. Pt states she does not wish to have surgery here at [facility] and will follow up at [facility] I explained the importance of following up with an orthopedist and that she must due so KAYLA. Pt states she under stands the risks of leaving without scheduling follow up with one of our ortho doctors and agrees with the plan to be discharged and having to arrange her own follow up. I will attach ortho referral regardless Pt appears well is neurovascularily intact and is safe and stable for discharge Percocet sent to pts pharmacy risk vs benefits explained, as well as not to drive or drink with it and to read all instructions given with script Supportive care instructions explained and given to pt. Reasons to return emergently to ER explained and given. Importance of follow up with PMD and other specialists as indicated stressed to pt. Pt verbalized understanding of instructions. Pt to follow up with PMD in 2 days. Discharge - Discharge Information Problems reviewed: Yes Clinical Impression/Diagnosis: Wrist fracture, right Qualifiers: Encounter type: initial encounter Fracture type: closed Qualified Code(s): S62.101A - Fracture of unspecified carpal bone, right wrist, initial encounter for closed fracture Condition: Stable Disposition: HOME - Additional Discharge Information Prescriptions: Ibuprofen [Ibu] 600 mg PO TID #30 tablet Oxycodone HCl/Acetaminophen [Percocet 5-325 mg Tablet] 1 tab PO Q6H #20 tablet MDD 4 Ondansetron HCl [Zofran] 4 mg PO BID #15 tablet - Follow up/Referral Referrals: Elmer Weinstein MD [Staff Physician] - Antonio Loaiza MD [Staff Physician] - Lamont Lehman MD [Staff Physician] - - Patient Discharge Instructions Patient Printed Discharge Instructions: How to Take Care of Your Cast, DI for Wrist Fracture - Post Discharge Activity
[2020-01-14 11:49] LABS: ALBUMIN 4.2 g/dl (3.4-5.0); BILIRUBIN,TOTAL 0.5 mg/dL (0.2-1); CALCIUM 9.8 mg/dL (8.5-10.1); CREATININE 0.6 mg/dL (0.55-1.3); POTASSIUM 4.1 mmol/L (3.5-5.1); TOT PROT 7.7 g/dl (6.4-8.2)
[2020-01-14 12:00] LABS: ANISOCYTOSIS 2+; MACROCYTOSIS 2+; PLATELET ESTIMATE NORMAL
--- NOTE | 2020-01-14 12:39 | CON.ORTH ---
Consult Reason for Consultation:: right wrist fx - Past Medical History ...LMP: 06/09/99 ...: No - Alcohol/Substance Use Hx Alcohol Use: Yes (socially) - Smoking History Smoking history: Never smoked Have you smoked in the past 12 months: No Home Medications - Allergies Allergies/Adverse Reactions: Allergies Allergy/AdvReac Type Severity Reaction Status Date / Time No Known Allergies Allergy Verified 01/15/19 22:42 - Home Medications Home Medications: Ambulatory Orders NK [No Known Home Medication] 01/16/19 Physical Exam for Ortho Vital Signs: Vital Signs Temperature 98.2 F 01/14/20 09:58 Pulse Rate 80 01/14/20 09:58 Respiratory Rate 20 01/14/20 09:58 Blood Pressure 131/71 01/14/20 09:58 O2 Sat by Pulse Oximetry (%) 99 01/14/20 09:58 Labs: CBC, BMP 01/14/20 10:50 01/14/20 10:50 INR, PTT INR 1.04 (0.83-1.09) 01/14/20 10:50 - Upper Extremity Wrist: Yes: Right, Deformity, Limited ROM (splint intact, nvi), Pain, Swelling, Tenderness, Other Imaging - Results X-ray: Image Reviewed Assessment/Plan 69 year old female with pmhx of Gaucher's disease and pulmonary HTN presenting after FOOSH to [facility]. Pt states she was on a walk and tripped and fell, falling onto her out stretched hand felt immediate pain and saw a wrist deformity. Pt came immediately to the ED. Did not hit head or have LOC, states fall was mechanical and no pre syncope. Pt denies numbness and tingling in the effected extremity. Pt otherwise denies: fevers, chills, syncope, lightheadedness, dizziness, headaches, neck pain, chest pain, shortness of breath, palpitations, back pain, abdominal pain, nausea, vomiting, diarrhea, constipation. a/p right displaced distal radius and ulna fxs Risks and benefits were d/w pt in detail closed reduction was performed by ED, improved position Pt will need operative intervention, she prefers to go to [facility] Will be given Dr. Whitehead's info in case pt changes her mind Maintain splint strict elevation lyman control d/c home and pt will f/u at [facility] d/w Dr. Whitehead
[2020-01-14 13:30] VITALS: BP 135/66; PULSE 82; TEMP 98.1
== END 2020-01-14 13:30 | disposition home or self-care (01) ==
LOC: JER 09:58
PROC: 0PSHXZZ Reposition Right Radius, External Approach (ICD-10-PCS; principal; 2020-01-14)
PROC: 2W3CX1Z Immobilization of Right Lower Arm using Splint (ICD-10-PCS; 2020-01-14)
PROC: 3E033NZ Introduction of Analgesics, Hypnotics, Sedatives into Peripheral Vein, Percutaneous Approach (ICD-10-PCS; 2020-01-14)
PROC: 3E0234Z Introduction of Serum, Toxoid and Vaccine into Muscle, Percutaneous Approach (ICD-10-PCS; 2020-01-14)
DX: S62.101A Fracture of unspecified carpal bone, right wrist, initial encounter for closed fracture (principal)
CPT/HCPCS: 36415; 73110-TC-RT-FY; 73130-TC-RT-FY; 80053; 85025; 85610; 90715; 99285-25

== ENCOUNTER 2024-01-22 07:40 | Emergency (ER) | payer OTHER, BC ==
[2024-01-22 07:47] VITALS: BP 121/64; PULSE 95; RESP 16; TEMP 97.8; BMI 21.9
== END 2024-01-22 08:35 | disposition left against medical advice (07) ==
LOC: JER 07:40
DX: Z53.21 Procedure and treatment not carried out due to patient leaving prior to being seen by health care provider (principal)
CPT/HCPCS: 99281-25